=== PATIENT | female | born 1975 ===

== ENCOUNTER 2023-03-30 07:08 | Day surgery (SDC) | payer OTHER, SELFPAY ==
[2023-03-30] VITALS (10 sets, daily range): BP systolic 97–148; BP diastolic 68–97; PULSE 68–86; RESP 11–17; TEMP 36.2–36.4; O2SAT 95–100; BMI 37.8
--- NOTE | 2023-03-30 | DI.RAD.S_ITS ---
PROCEDURE: XR LUMBAR SPINE 2-3V INDICATIONS: L5-S1 MICRODISECTOMY TECHNIQUE: 2 lateral low resolution fluoroscopic spot films were obtained intraoperatively COMPARISON: None. FINDINGS: Low resolution fluoroscopic spot films show surgical instrumentation posterior to the L5-S1 disc space IMPRESSION: Fluoroscopic guidance Approved by: Jose Cantu M.D. on 03/30/2023 at 19:09
--- NOTE | 2023-03-30 08:02 | SUR.OPER ---
Prone on spine table, head in foam head support, padded chest and pelvic supports, gel pad at knees, lower legs supported by pillows; nipples, genitalia and toes free of pressure, arms secured on foam padded arm boards at <90 degrees abduction. Tape over blanket at thigh secured to table.
[2023-03-30] MEDS: LACTATED RINGERS 1,000 ML 42 ML IV ×2 (08:33→10:05)
[2023-03-30] MEDS: ACETAMINOPHEN 325 MG TABLET 975 MG PO (08:36)
--- NOTE | 2023-03-30 08:58 | PM.PREOP ---
Pre-operative Note Interval Note History & Physical reviewed/Exam performed by Physician: Yes Changes to H&P: No
[2023-03-30] MEDS: CEFAZOLIN 2 GM/100 ML PREMIX 100 ML IV (09:18)
[2023-03-30] MEDS: BUPIVACAINE 0.25% (PF) 30 ML, EPINEPHrine 0.15 MG INJ (09:28)
--- NOTE | 2023-03-30 10:26 | P.OP_ITS ---
Operative Date/Time/Diagnoses Date of procedure: 03/30/23 Time of procedure: 08:45 Pre-op diagnosis: 1. L5-S1 disc herniation 2. Lumbar radiculopathy Post-op diagnosis: same Procedure & Clinicians Procedure: 1. Right Lumbar L5-S1 microdiscectomy 2. Utilization of microsurgical technique and operating microscope Same procedure as scheduled: Yes Indications: Patient has been having acute onset right leg pain weakness and numbness for the last 7 weeks. Her right leg pain has progressed significantly and she has been wheelchair- bound for the last 5 days due to the severe pain along with weakness and inability to walk due to the severe pain when she stands up. Her MRI shows a large L5-S1 disc herniation causing both central and lateral recess stenosis with impingement of the S1 nerve root on the right side. Patient failed multiple conservative management with worsening pain weakness and numbness in her lower extremity. Patient has been having difficulty performing activity of daily living. After discussing risks benefits of treatment options, patient elected proceed with surgery. Surgeon: Farshad Huerta Hinging Machine Operator: Teodora Tarango Click Yes if Unassisted: No Anesthesia Type: General Operative Notes Closure Type: primary Specimen(s): none sent Estimated Blood Loss (mL): 5 Blood products transfused: none Procedure in detail: Patient was seen in the preoperative area. Risks and benefits of the surgery was discussed with the patient. Informed consent was obtained from the patient and placed in the chart. Surgical site was marked. Patient was taken to the operative room. General anesthesia was administered. Prophylactic antibiotic was given to the patient less than 30 min before the incision was made. Patient was placed into a prone position on the Jonas table. Patient's back was then prepped and draped in the sterile fashion. Time-out was performed at this time. Using AP and lateral C-arm imaging the interval between L5-S1 was identified and marked on patient's back. A 1 inch incision 1 in from midline was made on the right side. The fascia was incised in line with skin incision. Globus MARS retractors was placed inside the incision and docked onto the L5 lamina. Using microsurgical technique and operating microscope, a L5 laminotomy was performed using a Kerrison rongeur. Liagamentum flavum was resected at the site of the laminotomy. The disc space at L5-S1 was identified. Microdiscectomy was performed by incising the annulus with #11 blade. Microcurettes and pituitary was used to removed herniated disc fragments of disc from the epidural space. One single piece of large disc fragment was able to be removed from the epidural space which was causing severe central and lateral recess stenosis at the L5-S1 level. After the microdiskectomy was completed, the area medial lateral superior and inferior to the area of the microdiskectomy was inspected and explored using a micro curette. No other impinging structure was identified. The wound was then irrigated with sterile normal saline. 40 mg Depo-Medrol was placed into the epidural space. The deep fascia was closed with 1-0 Vicryl. The subcutaneous tissue was closed with 2-0 Vicryl. The skin was closed with 4-0 Monocryl. Patient tolerated the procedure well. There were no complications. Patient was transferred recovery room in stable condition. Complications: none Post-operative Condition: stable Disposition: PACU Plan for aftercare: Discharge to home
[2023-03-30] MEDS: ONDANSETRON 4 MG/2 ML INJ IV (11:04)
[2023-03-30] MEDS: hydrOXYzine 50 MG/ML INJ 25 MG IM (11:04)
[2023-03-30] MEDS: OXYCODONE IR 5 MG TABLET PO (11:04)
== END 2023-03-30 13:00 | disposition home or self-care (01) ==
PROVIDERS: PCP Internal Medicine; Referring Provider Orthopaedic Surgery Orthopaedic Surgery of the Spine; Visit Provider Orthopaedic Surgery Orthopaedic Surgery of the Spine
PROC: (CPT 63030; principal; 2023-03-30 08:45)
DX: M51.26 Other intervertebral disc displacement, lumbar region (principal); M54.16 Radiculopathy, lumbar region
CPT/HCPCS: 63030; 72100; 76000; J0171; J0330; J0690; J1100; J1170; J1885; J2250; J2405; J2704; J2919; J3010; J3410